=== PATIENT | female | born 1930 | race Caucasian/White ===

== ENCOUNTER 2018-04-05 07:20 | Outpatient (CLI) | payer OTHER | END 2018-04-05 12:37 | disposition home or self-care (01) | LOC: TOM 07:20 | DX: R19.5 Other fecal abnormalities (principal) ==

== ENCOUNTER 2018-05-10 07:33 | Outpatient (CLI) | payer OTHER | END 2018-05-10 07:45 | disposition home or self-care (01) | LOC: RX STUDY 07:33 | DX: R10.10 Upper abdominal pain, unspecified (principal) ==